=== PATIENT | female | born 1990 | race Caucasian/White ===

== ENCOUNTER 2022-04-20 15:58 | Emergency (ER) | payer OTHER | END 2022-04-20 17:19 | disposition short-term general hospital (02) | LOC: NAV ERS 15:58 | DX: T76.21XA Adult sexual abuse, suspected, initial encounter (principal); S70.12XA Contusion of left thigh, initial encounter; S70.11XA Contusion of right thigh, initial encounter; S50.311A Abrasion of right elbow, initial encounter; X58.XXXA Exposure to other specified factors, initial encounter | CPT/HCPCS: 99284 ==